=== PATIENT | male | born 1995 | race Caucasian/White ===

== ENCOUNTER 2019-05-26 22:11 | Emergency (ER) | payer OTHER ==
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
[2019-05-27] MEDS ORDERED: Ketorolac TAB * 10 MG TAB PO ONE (00:10)
[2019-05-27] MEDS ORDERED: Cyclobenzaprine TAB* 10 MG PO ONE (00:10)
[2019-05-27 00:44] VITALS: BP 126/71
== END 2019-05-27 00:43 | disposition home or self-care (01) ==
LOC: ED 22:11
DX: M62.838 Other muscle spasm (principal); V89.2XXA Person injured in unspecified motor-vehicle accident, traffic, initial encounter; Y92.9 Unspecified place or not applicable; M54.5 Low back pain
CPT/HCPCS: 99282; A9270-GY